=== PATIENT | female | born 1955 | race Two or more races ===

== ENCOUNTER → 2020-05-03 | Outpatient (CLI) | payer SELFPAY | LOC: M LABSMTC 08:59 | PROVIDERS: ATTEND Pediatrics | DX: Z20.828 Contact with and (suspected) exposure to other viral communicable diseases (principal) ==

== ENCOUNTER → 2020-11-04 | Outpatient (CLI) | payer MEDICARE, OTHER | LOC: M WUC 09:32 | PROVIDERS: ATTEND Family Medicine Adult Medicine | DX: Z11.1 Encounter for screening for respiratory tuberculosis (principal); R91.8 Other nonspecific abnormal finding of lung field ==

== ENCOUNTER → 2020-11-24 | Outpatient (CLI) | payer MEDICARE, OTHER ==
--- NOTE | 2020-11-26 08:17 | REPMRS ---
Patient History The patient states she has not had a clinical breast exam in over a year. Patient is postmenopausal and had first child at age 32. No known family history of cancer. No Hormone Replacement Therapy Pfizer vaccine 06/12/20 left arm. 07/01/20 left arm. Patient states no breast complaints today. Patient has signed MRS History Sheet. Digital Woman Screen Mammo: November 24, 2020 - Exam #: [id number] Bilateral CC and MLO view(s) were taken. Technologist: RT Yasmin FINDINGS: The breast tissue is heterogeneously dense. This may lower the sensitivity of mammography. Screening. Digital screening (2D) mammography was performed bilaterally in the CC and MLO projections. Additionally, breast tomosynthesis (3D mammography) was performed bilaterally in the CC and MLO projections. Todays exam was compared to the prior exam/exams. By history, the patient has no complaints of a palpable breast abnormality or other significant breast complaints. The breasts are unchanged in size and shape. Once again, dense heterogenous fibroglandular elements are seen bilaterally in a stable appearing pattern but to such a degree that the sensitivity of the mammogram in detecting cancer is decreased.There are no mirta-soft tissue densities or spiculated masses. There is no internal architectural distortion. Once again, stable benign appearing calcifications are seen.There are no suspicious mirta-calcific clusters. Skin thickening or nipple retraction is not present. IMPRESSION: BI-RADS Category 2- Benign Findings. There is no evidence of malignant alteration of the breasts. Followup examination recommended in one year. The [place] volumetric breast density category is C, the breasts are heterogenously dense which may obscure small masses. This mammogram was read with the assistance of [employer],an FDA approved computer aided detection system for mammography. The lifetime Tyrer-Cuzick score is 8.9% Due to the density of the breasts or Tyrer Cuzick score of 20% or greater, MRI/whole breast screening ultrasound is warranted. Negative x-ray reports should not delay surgical consultation if a dominant or clinically suspicious mass is present. Not all breast cancers can be identified by mammography. Therefore, we recommend that you continue to perform regular breast self-examination and physical examination and then promptly contact your physician of any concerns or changes. Adenosis and dense breasts may obscure an underlying neoplasm. Assessment: BI-RADS/ACR category 2 mammogram. Benign Findings. Recommendation Routine screening mammogram of both breasts in 1 year. Electronically Signed By: Jeronimo Knowles DO 11/26/20 [id number]
== END ==
LOC: M WHC 12:07
PROVIDERS: ATTEND Family Medicine
DX: Z12.31 Encounter for screening mammogram for malignant neoplasm of breast (principal)

== ENCOUNTER → 2021-01-15 | Outpatient (REF) | payer MEDICARE, OTHER | LOC: M LAB REF 13:12 | PROVIDERS: ATTEND Internal Medicine Nephrology | DX: E83.42 Hypomagnesemia (principal) ==

== ENCOUNTER → 2021-01-25 | Outpatient (CLI) | payer MEDICARE, OTHER ==
--- NOTE | 2021-01-25 11:10 | REP ---
INDICATION: CYST OF KIDNEY. COMPARISON: None. TECHNIQUE: Urinary tract sonography. FINDINGS: Scanning at the level of the urinary bladder shows no abnormality. Renal cortical echogenicity pattern is normal bilaterally and contours are smooth. There is no evidence of hydronephrosis or mass on either side. No calculus is appreciated. There is a 1.1 cm cyst in the lower pole left kidney along with a 0.8 cm cyst. On the right, there is a 0.6 cm cyst. The right kidney measures 12.4 x 7.0 x 4.8 cm. Left renal dimensions are 9.4 x 5.4 x 5.3 cm. IMPRESSION: Small cortical renal cysts as above. Otherwise negative. <Electronically signed by Tommie Reynaga > 01/25/21 [id number]
== END ==
LOC: M RAD 10:30
PROVIDERS: ATTEND Internal Medicine Nephrology
DX: N28.1 Cyst of kidney, acquired (principal)

== ENCOUNTER → 2021-02-26 | Outpatient (REF) | payer MEDICARE, OTHER ==
[2021-02-26 13:25] LABS: BACTERIA, URINE AUTO NEGATIVE (NEGATIVE); RBC, URINE AUTO 1 /HPF (0-3); SQUAMOUS EPITHELIAL CELL UR AU 2 /HPF (0-6); WBC, URINE AUTO 1 /HPF (0-3)
[2021-02-26 14:23] LABS: COMPLEMENT C3 106 MG/DL (90-180); COMPLEMENT C4 30 MG/DL (10-40); TOTAL PROTEIN 7.9 GM/DL (6.4-8.2)
[2021-02-26 14:44] LABS: HEPATITIS B SURFACE ANTIGEN NEGATIVE (NEGATIVE)
[2021-02-26 15:13] LABS: HEPATITIS B CORE ANTIBODY IGM NEGATIVE (NEGATIVE)
[2021-02-26 16:11] LABS: HEPATITIS B SURFACE ANTIBODY POSITIVE (POSITIVE)
[2021-03-02 10:41] LABS: ALBUMIN 4.46 GM/DL (3.29-5.55); ALBUMIN % 56.4 % (55.8-66.1); ALPHA-1-GLOBULIN % 3.4 % (2.9-4.9); ALPHA-1-GLOBULINS 0.27 GM/DL (0.17-0.41); ALPHA-2-GLOBULINS % 8.7 % (7.1-11.8); BETA-1-GLOBULINS % 5.5 % (4.7-7.2); BETA-2-GLOBULINS % 4.7 % (3.2-6.5); GAMMA GLOBULIN % 21.3 % (11.1-18.8)
[2021-03-02 10:42] LABS: ALPHA-2-GLOBULINS 0.69 GM/DL (0.42-0.99); BETA-1-GLOBULINS 0.43 GM/DL (0.28-0.60); BETA-2-GLOBULINS 0.37 GM/DL (0.19-0.55); GAMMA GLOBULINS 1.68 GM/DL (0.65-1.58)
[2021-03-02 18:11] LABS: ANCA-ATYPICAL <1:20 titer (Neg:<1:20); ANTI DS-DNA AB Negative (Negative); ANTINUCLEAR ANTIBODIES DIRECT Negative (Negative); CYTOPLASMIC NEUTROP AB ANCA-C <1:20 titer (Neg:<1:20); FREE LAMBDA LIGHT CHAINS SERUM 25.2 mg/L (5.7-26.3); KAPPA/LAMBDA RATIO SERUM 1.98 (0.26-1.65); PERINUCLEAR AB ANCA-P <1:20 titer (Neg:<1:20)
== END ==
LOC: M LAB REF 13:01
PROVIDERS: ATTEND Internal Medicine Nephrology
DX: N18.31 Chronic kidney disease, stage 3a (principal); R80.9 Proteinuria, unspecified

== ENCOUNTER → 2021-04-29 | Outpatient (REF) | payer MEDICARE, OTHER | LOC: M LAB REF 12:59 | PROVIDERS: ATTEND Nurse Practitioner Family | DX: E83.42 Hypomagnesemia (principal) ==

== ENCOUNTER → 2021-04-30 | Outpatient (REF) | payer MEDICARE, OTHER | LOC: M LAB REF 13:00 | PROVIDERS: ATTEND Nurse Practitioner Family | DX: R80.9 Proteinuria, unspecified (principal) ==

== ENCOUNTER → 2021-08-04 | Outpatient (REF) | payer MEDICARE, OTHER ==
[2021-08-04 18:10] LABS: TOTAL PROTEIN,RANDOM URINE 92.5 MG/DL (0.0-12.0)
== END ==
LOC: M LAB REF 17:22
PROVIDERS: ATTEND Nurse Practitioner Family
DX: R80.9 Proteinuria, unspecified (principal)

== ENCOUNTER → 2022-04-14 | Outpatient (REF) | payer MEDICARE, OTHER ==
[2022-04-15 13:26] LABS: TOTAL PROTEIN,RANDOM URINE 105.4 MG/DL (0.0-14.0)
[2022-04-15 13:31] LABS: CREATININE,RANDOM URINE 106.3 MG/DL
== END ==
LOC: M LAB REF 12:48
PROVIDERS: ATTEND Nurse Practitioner Family
DX: R80.9 Proteinuria, unspecified (principal)

== ENCOUNTER → 2022-10-25 | Outpatient (REF) | payer MEDICARE, OTHER ==
[2022-10-25 18:59] LABS: TOTAL PROTEIN,RANDOM URINE 20.4 MG/DL (0.0-14.0)
[2022-10-25 19:02] LABS: CREATININE,RANDOM URINE 42.4 MG/DL
== END ==
LOC: M LAB REF 17:08
PROVIDERS: ATTEND Nurse Practitioner Family
DX: R80.9 Proteinuria, unspecified (principal)

== ENCOUNTER → 2023-04-13 | Outpatient (REF) | payer MEDICARE, OTHER ==
[2023-04-13 18:55] LABS: CREATININE,RANDOM URINE 125.6 MG/DL
[2023-04-13 18:58] LABS: TOTAL PROTEIN,RANDOM URINE 126.9 MG/DL (0.0-14.0)
== END ==
LOC: M LAB REF 16:51
PROVIDERS: ATTEND Nurse Practitioner Family
DX: R80.9 Proteinuria, unspecified (principal)

== ENCOUNTER 2023-05-23 06:18 | Day surgery (SDC) | payer MEDICARE, OTHER ==
[~2023-05-23] VITALS: Ht 170.2 cm; Wt 75.3 kg
[~2023-05-23 06:18] MED LIST: BSS with VANC/TOB/EPI for EYE CASES IR ONE; CALCCHW19 PO; CETI-24 PO; CYCLOPENTOLATE 1% OPHTH SOLN 2ML BTL OD SCH; GINK60CA8 PO; LIDO1PAD; LISI2.5T9 PO; MECL25CH45 PO; METF-838 PO; OFLOXACIN 0.3 % (OCUFLOX) OPTH SOL 5ML OD SCH; OMEG1CAP85 PO; PHENYLEPHRINE 2.5% OPHTH SOL 2ML OD SCH; PROPARACAINE 0.5% OPHTH SOL 15ML OD ONE; SIMV40TA20 PO; TROPICAMIDE 1% OPHTH SOLN 15ML OD SCH
[2023-05-23] MEDS ORDERED: CEFUROXIME 1MG/0.1ML INTRACAMERAL INJ As Ordered ONE (06:45)
[2023-05-23] MEDS ORDERED: LIDOCAINE 1% SDV 5ML VIAL As Ordered ONE (06:45)
[2023-05-23] MEDS ORDERED: BSS IRR 500ML/OMIDRIA 4ML IRR BAG (OR ONLY) As Ordered ONE (06:45)
[2023-05-23] MEDS ORDERED: MIDAZOLAM INJ 2MG/2ML VIAL As Ordered ONE (07:20)
[2023-05-23 09:17] VITALS: BP 127/60; TEMP 97.4; O2SAT 98
== END 2023-05-23 09:19 | disposition home or self-care (01) ==
LOC: M SDC 06:18
PROVIDERS: ATTEND Ophthalmology
DX: H25.11 Age-related nuclear cataract, right eye (principal); E78.5 Hyperlipidemia, unspecified; E11.9 Type 2 diabetes mellitus without complications; K21.9 Gastro-esophageal reflux disease without esophagitis; Z79.84 Long term (current) use of oral hypoglycemic drugs; Z79.899 Other long term (current) drug therapy
CPT/HCPCS: 66984; J0697; J1097; J2250; V2788

== ENCOUNTER 2023-06-13 07:26 | Day surgery (SDC) | payer MEDICARE, OTHER ==
[~2023-06-13] VITALS: Ht 167.6 cm; Wt 75.7 kg
[~2023-06-13 07:26] MED LIST changes: -BSS with VANC/TOB/EPI for EYE CASES IR ONE; -CYCLOPENTOLATE 1% OPHTH SOLN 2ML BTL OD SCH; +MIDAZOLAM INJ 2MG/2ML VIAL As Ordered ONE; -OFLOXACIN 0.3 % (OCUFLOX) OPTH SOL 5ML OD SCH; -PHENYLEPHRINE 2.5% OPHTH SOL 2ML OD SCH; -PROPARACAINE 0.5% OPHTH SOL 15ML OD ONE; -TROPICAMIDE 1% OPHTH SOLN 15ML OD SCH; +fentaNYL 100 MCG/2 ML INJECTION As Ordered ONE
[2023-06-13] MEDS: CYCLOPENTOLATE 1% OPHTH SOLN 2ML BTL OS SCH (08:24)
[2023-06-13] MEDS: PHENYLEPHRINE 2.5% OPHTH SOL 2ML OS SCH (08:24)
[2023-06-13] MEDS: PROPARACAINE 0.5% OPHTH SOL 15ML OS ONE (08:24)
[2023-06-13] MEDS: TROPICAMIDE 1% OPHTH SOLN 15ML OS SCH (08:24)
[2023-06-13] MEDS: OFLOXACIN 0.3 % (OCUFLOX) OPTH SOL 5ML OS SCH (08:24)
[2023-06-13] MEDS ORDERED: POVIDONE-IODINE 5% OPHTH PREP SOL 30ML As Ordered ONE (08:48)
[2023-06-13] MEDS: BSS IRR 500ML/OMIDRIA 4ML IRR BAG (OR ONLY) As Ordered ONE (08:58)
[2023-06-13] MEDS: LIDOCAINE 1% SDV 5ML VIAL As Ordered ONE (08:58)
[2023-06-13] MEDS: CEFUROXIME 1MG/0.1ML INTRACAMERAL INJ As Ordered ONE (08:58)
[2023-06-13 09:15] VITALS: BP 143/67; TEMP 97.2; O2SAT 97
== END 2023-06-13 09:25 | disposition home or self-care (01) ==
LOC: M SDC 07:26
PROVIDERS: ATTEND Ophthalmology
DX: H25.12 Age-related nuclear cataract, left eye (principal); E11.9 Type 2 diabetes mellitus without complications; K21.9 Gastro-esophageal reflux disease without esophagitis; N18.9 Chronic kidney disease, unspecified; E78.5 Hyperlipidemia, unspecified; Z79.899 Other long term (current) drug therapy
CPT/HCPCS: 66984; J0697; J1097; J2250; J3010; V2788

== ENCOUNTER 2023-10-05 06:49 | Day surgery (SDC) | payer MEDICARE, OTHER ==
[~2023-10-05] VITALS: Ht 170.2 cm; Wt 72.6 kg
[2023-10-05] MEDS: NS 1,000 ML IV ONE (06:00)
[~2023-10-05 06:49] MED LIST changes: +FAMO20TA PO; -MIDAZOLAM INJ 2MG/2ML VIAL As Ordered ONE; -fentaNYL 100 MCG/2 ML INJECTION As Ordered ONE
[2023-10-05] MEDS ORDERED: fentaNYL 100 MCG/2 ML INJECTION As Ordered ONE (08:30)
[2023-10-05] MEDS ORDERED: propofoL 200 MG/20 ML VIAL As Ordered ONE (08:41)
[2023-10-05] MEDS ORDERED: LIDOCAINE 2% 100MG/5ML SDV (FOR ANES.) As Ordered ONE (08:50)
[2023-10-05 09:19] VITALS: TEMP 97.9
[2023-10-05 09:47] VITALS: BP 136/63; O2SAT 97
== END 2023-10-05 10:04 | disposition home or self-care (01) ==
LOC: M OPP 06:49
PROVIDERS: ATTEND Internal Medicine Gastroenterology
DX: D12.6 Benign neoplasm of colon, unspecified (principal); D50.9 Iron deficiency anemia, unspecified; K29.70 Gastritis, unspecified, without bleeding; R10.13 Epigastric pain; E11.9 Type 2 diabetes mellitus without complications; Z79.02 Long term (current) use of antithrombotics/antiplatelets; Z79.899 Other long term (current) drug therapy
CPT/HCPCS: 43239; 45381; 45385; 88305; J3010

== ENCOUNTER → 2023-10-12 | Outpatient (REF) | payer MEDICARE, OTHER ==
[2023-10-12 18:05] LABS: TOTAL PROTEIN,RANDOM URINE 187.1 MG/DL (0.0-14.0)
== END ==
LOC: M LAB REF 17:10
PROVIDERS: ATTEND Nurse Practitioner Family
DX: R80.9 Proteinuria, unspecified (principal)

== ENCOUNTER → 2024-04-11 | Outpatient (REF) | payer MEDICARE, OTHER ==
[~2024-04-11] MED LIST changes: +JARD1TAB PO; +OMEG-28 PO; -OMEG1CAP85 PO; +OMEP-173 PO; +ROSU20TA86 PO
[2024-04-11 13:52] LABS: PERCENT SATURATION 22.2 % (13.2-45.0)
[2024-04-11 13:55] LABS: FERRITIN 93.9 NG/ML (7.3-270.7)
[2024-04-11 14:37] LABS: TOTAL PROTEIN,RANDOM URINE 84.5 MG/DL (0.0-14.0)
[2024-04-11 14:42] LABS: CREATININE,RANDOM URINE 83.9 MG/DL
[2024-04-12 09:12] LABS: FOLATE 9.9 NG/ML (>5.4)
== END ==
LOC: M LAB REF 13:20
PROVIDERS: ATTEND Nurse Practitioner Family
DX: D50.9 Iron deficiency anemia, unspecified (principal); R80.9 Proteinuria, unspecified

== ENCOUNTER → 2024-06-12 | Outpatient (CLI) | payer MEDICARE, OTHER ==
[~2024-06-12] MED LIST changes: +LIDO5DIS41 TD
== END ==
LOC: M WHC 08:56
PROVIDERS: ATTEND Internal Medicine
DX: Z13.820 Encounter for screening for osteoporosis (principal); Z91.89 Other specified personal risk factors, not elsewhere classified; M85.89 Other specified disorders of bone density and structure, multiple sites

== ENCOUNTER 2024-06-25 07:09 | Day surgery (SDC) | payer MEDICARE, OTHER ==
[~2024-06-25] VITALS: Ht 167.6 cm; Wt 68.2 kg
[2024-06-25] MEDS ORDERED: propofoL 200 MG/20 ML VIAL As Ordered ONE (08:18)
[2024-06-25] MEDS ORDERED: LIDOCAINE 2% 100MG/5ML SDV (FOR ANES.) As Ordered ONE (08:18)
[2024-06-25] MEDS ORDERED: GLYCOPYRROLATE INJ 0.2 MG/ML 2 ML VIAL As Ordered ONE (08:18)
[2024-06-25 09:10] VITALS: BP 120/64; TEMP 97.2; O2SAT 97
== END 2024-06-25 09:18 | disposition home or self-care (01) ==
LOC: M OPP 07:09
PROVIDERS: ATTEND Internal Medicine Gastroenterology
DX: D12.2 Benign neoplasm of ascending colon (principal); K57.30 Diverticulosis of large intestine without perforation or abscess without bleeding; K64.8 Other hemorrhoids; Z86.0101 Personal history of adenomatous and serrated colon polyps; Z79.84 Long term (current) use of oral hypoglycemic drugs; Z79.899 Other long term (current) drug therapy
CPT/HCPCS: 45385; 88305; J1596

== ENCOUNTER → 2024-07-26 | Outpatient (CLI) | payer MEDICARE, OTHER ==
[2024-07-26 10:19] LABS: INR 0.82; PARTIAL THROMBOPLASTIN TIME 30.3 SECONDS (24.8-34.2); PROTHROMBIN TIME 11.6 SECONDS (12.5-14.5)
== END ==
LOC: M LAB 09:41
PROVIDERS: ATTEND Radiology Diagnostic Radiology
DX: Z79.01 Long term (current) use of anticoagulants (principal)

== ENCOUNTER → 2024-07-29 | Outpatient (CLI) | payer MEDICARE, OTHER ==
[~2024-07-29] MED LIST changes: +ACETAMINOPHEN 325 MG TAB PO PRN; +MIDAZOLAM INJ 2MG/2ML VIAL As Ordered ONE; +MORPHINE 2 MG/ML 1ML VIAL IV PRN; +NS (Normal Saline) 0.9% 1,000 ML IV SCH; +ONDANSETRON 4MG 2ML VIAL IV PRN; +PERCOCET 5MG/325MG TAB PO PRN; +fentaNYL 100 MCG/2 ML INJECTION As Ordered ONE
[2024-07-29 12:00] VITALS: TEMP 97.6
[2024-07-29] MEDS: fentaNYL 100 MCG/2 ML INJECTION IV PRN (13:30)
[2024-07-29] MEDS: MIDAZOLAM INJ 2MG/2ML VIAL IV PRN (13:30)
[2024-07-29] MEDS: LIDOCAINE 1% MDV 20ML VIAL SC STA (13:35)
[2024-07-29] MEDS: NS (Normal Saline) 0.9% 1,000 ML IV SCH (13:50)
[2024-07-29 15:35] VITALS: BP 129/60; O2SAT 99
== END ==
LOC: M IRPRO 11:52
PROVIDERS: ATTEND Nurse Practitioner Family
DX: R80.9 Proteinuria, unspecified (principal)
CPT/HCPCS: 50200; 76942; 88300; 99152; 99153; J2250; J3010